=== PATIENT | male | born 1945 | race Caucasian/White ===

== ENCOUNTER 2018-01-19 16:09 | Emergency (ER) | payer OTHER ==
[~2018-01-19] VITALS: Ht 172.7 cm; Wt 72.0 kg
[2018-01-19 16:44] VITALS: BP 194/94
[2018-01-19] MEDS ORDERED: METO25TA35 PO (17:04)
[2018-01-19] MEDS ORDERED: FLUT1DIS IH (17:04)
[2018-01-19] MEDS ORDERED: CELE200C PO (17:04)
[2018-01-19] MEDS ORDERED: ASPI-496 PO (17:04)
[2018-01-19] MEDS ORDERED: ESOM20CA PO (17:04)
== END 2018-01-19 18:22 | disposition left against medical advice (07) ==
LOC: ED 18:16
DX: M79.89 Other specified soft tissue disorders (principal)
CPT/HCPCS: 99281